=== PATIENT | female | born 1970 | race Two or more races ===

== ENCOUNTER 2024-01-09 05:13 | Day surgery (SDC) | payer OTHER ==
[~2024-01-09 05:13] MED LIST: SYNTHROID75 MCG PO
[2024-01-09] MEDS ORDERED: HEMOSTATIC MATRIX 1 KIT KIT TOP ONE (10:15)
[2024-01-09] MEDS ORDERED: CEFTRIAXONE SODIUM 2,000 MG VIAL IV SCH (10:15)
[2024-01-09] MEDS ORDERED: DIBUCAINE 30 GM TUBE RECTAL ONE (10:15)
[2024-01-09] MEDS ORDERED: POVIDONE-IODINE 118 ML BOTT TOP ONE (10:15)
[2024-01-09] MEDS ORDERED: METRONIDAZOLE/SODIUM CHLORIDE 500 MG/100 ML PIGGYBACK IV SCH (10:15)
[2024-01-09] MEDS ORDERED: LIDOCAINE HCL 1%/EPINEPHRINE 20ML VIAL IJ ONE (10:15)
[2024-01-09] MEDS ORDERED: BUPIVACAINE HCL 30 ML VIAL IJ ONE (10:15)
[2024-01-09] MEDS ORDERED: RECTICARE30 GM TOP (10:16)
[2024-01-09] MEDS ORDERED: PERCOCET 5-3251 EACH PO (10:16)
== END 2024-01-09 15:45 | disposition home or self-care (01) ==
LOC: CIR.AMB 05:13
PROVIDERS: ATTEND Surgery
DX: K60.30 Anal fistula, unspecified (principal)

== ENCOUNTER 2024-04-20 05:00 | Day surgery (SDC) | payer OTHER ==
[~2024-04-20 05:00] MED LIST changes: +PERCOCET 5-3251 EACH PO; +RECTICARE30 GM TOP
[2024-04-20] MEDS ORDERED: PERCOCET 5-3251 EACH PO (07:59)
[2024-04-20] MEDS ORDERED: RECTICARE30 GM TOP (08:02)
[2024-04-20] MEDS ORDERED: METRONIDAZOLE/SODIUM CHLORIDE 500 MG/100 ML PIGGYBACK IV ONE (13:00)
[2024-04-20] MEDS ORDERED: POVIDONE-IODINE 118 ML BOTT TOP ONE (13:00)
[2024-04-20] MEDS ORDERED: LIDOCAINE HCL 1%/EPINEPHRINE 20ML VIAL IJ ONE (13:00)
[2024-04-20] MEDS ORDERED: DIBUCAINE 30 GM TUBE RECTAL ONE (13:00)
[2024-04-20] MEDS ORDERED: CEFTRIAXONE SODIUM 2,000 MG VIAL IV ONE (13:00)
[2024-04-20] MEDS ORDERED: BUPIVACAINE HCL 30 ML VIAL IJ ONE (13:00)
== END 2024-04-20 12:45 | disposition home or self-care (01) ==
LOC: CIR.AMB 05:00
PROVIDERS: ATTEND Surgery
DX: K60.30 Anal fistula, unspecified (principal); R19.4 Change in bowel habit; E03.8 Other specified hypothyroidism